=== PATIENT | male | born 1980 | race Caucasian/White ===

== ENCOUNTER 2019-10-24 08:57 | Emergency (ER) | payer SELFPAY ==
[~2019-10-24] VITALS: Ht 182.9 cm; Wt 117.9 kg
[2019-10-24 09:05] VITALS: BP 139/96
--- NOTE | 2019-10-24 09:22 | NUR ---
pt walked to room in steady gait.
[2019-10-24] MEDS: PENICILLIN V POTASSIUM 250 MG TAB PO ONE (09:43)
[2019-10-24] MEDS: HYDROcodone/APAP 5/325 MG 1 TAB TAB PO ONE (09:46)
--- NOTE | 2019-10-24 09:46 | NUR ---
Pt was medicated per MD order.
--- NOTE | 2019-10-24 10:00 | NUR ---
Patient discharged with v/s stable. Written and verbal after care instructions given and explained. Patient verbalized understanding. Ambulatory with steady gait. All questions addressed prior to discharge. Advised to follow up with PMD.
[2019-10-24 10:01] VITALS: BP 134/75
== END 2019-10-24 10:00 | disposition home or self-care (01) ==
LOC: MED 08:57
DX: K04.7 Periapical abscess without sinus (principal); H92.02 Otalgia, left ear; F17.200 Nicotine dependence, unspecified, uncomplicated
CPT/HCPCS: 99283